=== PATIENT | male | born 1980 | race Caucasian/White ===

== ENCOUNTER → 2017-02-01 | Outpatient (CLI) | payer BC, OTHER ==
[2017-02-01 10:21] LABS: SPERM MORPHOLOGY SENT TO REFERENC LAB
[2017-02-01 10:58] LABS: SA NONMOTILE CONCENTRATION 15.1 X10^6/mL; SA NONMOTILE COUNT1 148; SA NONMOTILE COUNT2 154
[2017-02-01 10:59] LABS: ROUND CELL CONC. 0.8 X10^6/mL (<5.1); SA DILUTION CNT 1 193; SA DILUTION CNT 2 164; SA DILUTION FACTOR 2; SA ROUND CELL COUNT1 8; SA ROUND CELL COUNT2 7; SA SPERM MOTILE CONC 20.6 X10^6mL; SPERM PROGRESSION 3; TOTAL SPERM COUNT 135.7 X10^6 (>33.0)
== END ==
LOC: LAB 10:13
PROVIDERS: ATTEND Obstetrics & Gynecology
DX: N46.9 Male infertility, unspecified (principal)
CPT/HCPCS: 89320